=== PATIENT | male | born 2000 | race Caucasian/White ===

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

== ENCOUNTER 2023-03-25 17:37 | Emergency (ER) | payer SELFPAY ==
[~2023-03-25] VITALS: Ht 188 cm; Wt 79.4 kg
[2023-03-25 21:36] VITALS: BP 129/71
== END 2023-03-25 22:41 | disposition left against medical advice (07) ==
LOC: ER 17:37
DX: F11.23 Opioid dependence with withdrawal (principal); Z53.29 Procedure and treatment not carried out because of patient's decision for other reasons
CPT/HCPCS: 99281; A9270

== ENCOUNTER 2023-03-26 13:52 | Emergency (ER) | payer SELFPAY ==
[~2023-03-26] VITALS: Ht 190.5 cm; Wt 81.7 kg
[2023-03-26 14:31] VITALS: BP 135/73
== END 2023-03-26 17:15 | disposition home or self-care (01) ==
LOC: ER 13:52
DX: F11.90 Opioid use, unspecified, uncomplicated (principal)
CPT/HCPCS: 99281

== ENCOUNTER 2023-05-20 09:47 | Emergency (ER) | payer OTHER ==
[~2023-05-20] VITALS: Ht 190.5 cm; Wt 81.7 kg
[2023-05-20 10:00] VITALS: BP 109/97
[2023-05-20] MEDS ORDERED: SUBOXONE 8 MG-1 EACH SL (11:50)
== END 2023-05-20 12:30 | disposition home or self-care (01) ==
LOC: ER 09:47
DX: F11.93 Opioid use, unspecified with withdrawal (principal); Z51.81 Encounter for therapeutic drug level monitoring
CPT/HCPCS: 99283

== ENCOUNTER → 2025-03-02 | Outpatient (CLI) | payer OTHER ==
[~2025-03-02] MED LIST: SUBOXONE 8 MG-1 EACH SL
== END ==
LOC: LAB 11:20 → LAB SHORT 11:20
DX: J02.9 Acute pharyngitis, unspecified (principal); B34.9 Viral infection, unspecified
CPT/HCPCS: 87081